=== PATIENT | male | born 1950 | race Caucasian/White ===

== ENCOUNTER 2016-08-11 11:02 | Outpatient (CLI) ==
--- NOTE | 2016-08-11 12:13 | DI ---
EXAM: Left foot three view HISTORY: Heel pain COMPARISON: None FINDINGS: No fracture or dislocation. Moderate osteoarthritis first MTP joint with joint space shaka rowing osteophyte formation. Small to moderate plantar posterior calcaneal spurs. No focal soft ti ssue abnormality IMPERSSION: 1. Mild to moderate calcaneal spurs. 2. Moderate osteoarthritis first MTP joint.
== END 2016-08-11 11:03 | disposition home or self-care (01) ==
LOC: RAD 11:02
PROVIDERS: ATTEND Emergency Medicine
DX: M79.672 Pain in left foot (principal)